=== PATIENT | female | born 1970 | race Caucasian/White ===

== ENCOUNTER → 2016-06-26 | Outpatient (CLI) | payer OTHER ==
[~2016-06-26] MED LIST: ALPRAZOLAM PO; BENADRYL IV; HYDROCODON-ACE1 EAC5 PO; LISINOPRIL5 MG PO; LORTAB 7.5-5001 TAB PO; MEDROL PO; PRAVASTATIN SOD40 MG PO
== END | disposition home or self-care (01) ==
LOC: CEKG 09:15
DX: R07.9 Chest pain, unspecified (principal); R00.2 Palpitations
CPT/HCPCS: 93225; 93226

== ENCOUNTER → 2016-06-26 | Day surgery (SDC) | payer OTHER ==
--- NOTE | ~2016-06-26 | OR ---
Unit #: [id number] #: [id number] Patient: TINO MUNOZ [id number] [address] [place], [place] [address] [id number] O MR#: [id number] NAME: TINO MUNOZ ROOM: Date of Procedure: 06/26/2016 Admission Date: 06/26/2016 Surgeon: Josafat Perez M.D. : 1970 Attending Physician: Josafat Perez M.D. Primary Care Physician: Ruthy Rice M.D. PROCEDURE OPERATIVE NOTE PROCEDURE PERFORMED EGD with biopsy. INDICATION A 45-year-old with epigastric pain, history of peptic ulcer disease, also with history of GERD undergoing evaluation with upper endoscopy. MEDICATION Monitored anesthesia. POSTOP FINDINGS 1. Normal esophagus. 2. A 5 mm ulcer antrum along with significant gastritis and multiple erosions. Biopsies taken in the antrum and body. 3. Normal duodenum and distal duodenum. PLAN 1. The patient was told to take PPI. She has been taking it as needed only, deciding on her own, understands she is recommended to have a dose every day. 2. Avoid NSAIDs. 3. Diet discussed. DESCRIPTION OF PROCEDURE The patient was explained the procedure, risks and benefits along with risks and benefits of anesthesia. She was brought to the endoscopy room. Propofol anesthesia was given. Bite block was placed. Scope was passed down the mouth in the esophagus, stomach, duodenum and distal duodenum. Findings as described. Biopsies taken. Gently, I pulled the scope out of the patient's mouth. She tolerated it well. Dictated by... Elian Howe/carolyn TD: 06/26/2016 12:41 JOB #: [id number] Unit #: [id number] #: [id number] Patient: TINO MUNOZ PROCEDURE OPERATIVE NOTE Page 1 of 1 X Josafat Perez MD X PROCEDURE OPERATIVE NOTE
--- NOTE | ~2016-06-26 | HM ---
Unit #: [id number] #: [id number] Patient: TINO MUNOZ [id number] [address] [address] [id number] O MR#: [id number] NAME: TINO MUNOZ : 1970 SEX: F STUDY DATE/TIME: 06/26/2016 UNIT: GENERAL OFFICE CLERK ROOM: STUDY DESCRIPTION: Attending Physician: Josafat Perez M.D. Primary Care Physician: Ruthy Rice M.D. CARDIOLOGY REPORT EXAM 24-hour Holter monitor. DATE APPLIED 06/26/2016 DATE SCANNED 06/29/2016 [place] BY [facility] ORDERED BY Ruthy Rice M.D. REASON FOR STUDY Chest pain/palpitations. SUMMARY The patient was monitored for 24 hours. This is a Holter monitor. A total of 114,964 QRS complexes were analyzed. The rhythm was sinus throughout. Minimum heart rate of 40 beats per minute occurred at 6:24 a.m., also associated with the longest RR interval of 1.8 seconds. This is during a period of sinus arrhythmia. Fastest heart rate was 116 beats per minute at 10:44 a.m. Supraventricular ectopy: Four isolated beats. Ventricular ectopy: Three isolated beats. Symptoms: None. Patient activated events: None. IMPRESSION 1. Holter monitor shows no significant dysrhythmias. 2. No pauses. 3. No ST changes to correspond to chest pain. Dictated by... Christiano Espinal M.D. Unit #: [id number] #: [id number] Patient: TINO MUNOZ KHANH/alex TD: 06/30/2016 08:53 JOB #: [id number] CARDIOLOGY REPORT Page 1 of 1 X Christiano Espinal MD HOLTER MONITOR REPORT
== END | disposition home or self-care (01) ==
LOC: COPS 07:19
DX: K29.50 Unspecified chronic gastritis without bleeding (principal); K25.9 Gastric ulcer, unspecified as acute or chronic, without hemorrhage or perforation; I10 Essential (primary) hypertension; E78.5 Hyperlipidemia, unspecified; K21.9 Gastro-esophageal reflux disease without esophagitis; G89.29 Other chronic pain; M54.9 Dorsalgia, unspecified; F17.210 Nicotine dependence, cigarettes, uncomplicated; Z88.1 Allergy status to other antibiotic agents; Z88.8 Allergy status to other drugs, medicaments and biological substances; Z79.899 Other long term (current) drug therapy; Z90.49 Acquired absence of other specified parts of digestive tract; Z90.710 Acquired absence of both cervix and uterus; Z98.890 Other specified postprocedural states
CPT/HCPCS: 88305; 88312